=== PATIENT | female | born 1955 ===

== ENCOUNTER 2018-05-18 01:54 | Inpatient (IN) | payer MEDICAID ==
--- NOTE | 2018-05-18 02:35 | ED PDOC ---
HPI: SOB/CHF/COPD Time Seen by Provider: 05/18/18 02:08 Chief Complaint (Nursing): Shortness Of Breath Chief Complaint (Provider): Shortness Of Breath History Per: Patient History/Exam Limitations: no limitations Onset/Duration Of Symptoms: Days (x3) Associated Symptoms: denies: Fever, Chest Pain Additional Complaint(s): Yelena Wade is a 62 year old female with a past medical history of Pulmonary Embolism 6 years ago who is presenting to the ED with complaints of shortness of breath onset 3 days ago. Patient states that she had intermittent episodes of shortness of breath that worsened today. She states that with minimal exertion she feel winded. Patient denies any chest pain, fever , nausea, vomiting, or diarrhea. PMD: Shaik Lipscomb - Risk Factors PE Risk Factors: Pos: Previous PE Past Medical History Reviewed: Historical Data, Nursing Documentation, Vital Signs Vital Signs: Last Vital Signs Temp 98.2 F 05/18/18 02:15 Pulse 88 05/18/18 02:15 Resp 21 05/18/18 04:51 BP 142/93 H 05/18/18 02:15 Pulse Ox 95 05/18/18 02:37 - Medical History PMH: Pulmonary Embolism - Surgical History Surgical History: No Surg Hx - Family History Family History: States: Unknown Family Hx - Social History Current smoker - smoking cessation education provided: No Alcohol: None Drugs: Denies - Home Medications Home Medications: Ambulatory Orders Medication Instructions Recorded No Known Home Med 05/18/18 - Allergies Allergies/Adverse Reactions: Allergies Allergy/AdvReac Type Severity Reaction Status Date / Time warfarin [From Coumadin] AdvReac SWELLING Verified 05/18/18 02:15 Review of Systems ROS Statement: Except As Marked, All Systems Reviewed And Found Negative Constitutional: Negative for: Fever Cardiovascular: Negative for: Chest Pain Respiratory: Positive for: Shortness of Breath. Negative for: Cough Gastrointestinal: Negative for: Nausea, Vomiting, Diarrhea Physical Exam - Reviewed Nursing Documentation Reviewed: Yes Vital Signs Reviewed: Yes - Physical Exam Appears: Positive for: Non-toxic, No Acute Distress Head Exam: Positive for: ATRAUMATIC, NORMAL INSPECTION, NORMOCEPHALIC Skin: Positive for: Normal Color, Warm, DRY Eye Exam: Positive for: EOMI, Normal appearance, PERRL ENT: Positive for: Normal ENT Inspection Neck: Positive for: Normal, Painless ROM Cardiovascular/Chest: Positive for: Regular Rate, Rhythm. Negative for: Murmur Respiratory: Positive for: Normal Breath Sounds. Negative for: Respiratory Distress Gastrointestinal/Abdominal: Positive for: Normal Exam, Soft. Negative for: Tenderness Back: Positive for: Normal Inspection Extremity: Positive for: Normal ROM. Negative for: Deformity, Swelling Neurologic/Psych: Positive for: Alert, Oriented. Negative for: Motor/Sensory Deficits - Laboratory Results Result Diagrams: 05/18/18 02:40 05/18/18 02:40 - ECG O2 Sat by Pulse Oximetry: 95 (RA) - Critical Care Total Time (In Min): 60 Documented Critical Care: Time excludes all time spent performint seperately billable procedures Medical Decision Making Medical Decision Making: Time: 2:27 Impression: 62 year old female with dyspnea in setting of known Pulmonary Embolism Plan: --CT Chest --CMP --Troponin --Coag CT Chest: FINDINGS: Pulmonary arteries: Numerous acute bilateral pulmonary emboli. Clot is present in the mid and distal portions of the right main pulmonary artery, and in the distal portion of the left main pulmonary artery. No 'saddle embolus'. Multiple arterial branches, bilaterally, are occluded by clot. Clot load is greater on the right side. Aorta: No acute findings. No thoracic aortic aneurysm. Lungs: Unremarkable. No mass nor consolidation. Pleural space: No significant pleural effusions. No pneumothorax. Elevation of the right hemidiaphragm. Heart: No cardiomegaly. No significant pericardial effusion. Bones/joints: No acute fracture nor dislocation. Extensive degenerative thoracic spine changes. Soft tissues: Unremarkable. Lymph nodes: Unremarkable. No enlarged lymph nodes. IMPRESSION: Numerous acute bilateral pulmonary emboli. Clot is present in the mid and distal portions of the right main pulmonary artery, and in the distal portion of the left main pulmonary artery. No 'saddle embolus'. Multiple arterial branches, bilaterally, are occluded by clot. Clot load is greater on the right side. 5:01 --Labs reviewed which showed elevated Troponin levels. --IV Heparin was ordered. --Case discussed with Dr. Givens who agrees to Heparin over Lovenox for treatment of acute Pulmonary Embolism. --Patient will be admitted to the ICU under Dr. Kern. Scribe Attestation: Documented by Lucía Thoams, acting as a scribe for Baltazar Ragsdale MD. Provider Scribe Attestation: All medical record entries made by the Scribe were at my direction and personally dictated by me. I have reviewed the chart and agree that the record accurately reflects my personal performance of the history, physical exam, medical decision making, and the department course for this patient. I have also personally directed, reviewed, and agree with the discharge instructions and disposition. Disposition - Clinical Impression Clinical Impression: Pulmonary embolism - Patient ED Disposition Is Patient to be Admitted: Yes Discussed With DrFrancisca: Andrei Kern - Disposition Disposition Time: 05:05 Condition: FAIR Forms: Verified Person ([place])
[2018-05-18 02:52] LABS: BASO # 0.1 K/uL (0.0-0.2); BASO % 0.8 % (0.0-2.0); EOS # 0.1 K/uL (0.0-0.7); EOS % 0.9 % (0.0-4.0); HEMOGLOBIN 12.7 g/dL (12.0-16.0); LYMPH # 2.4 K/uL (1.0-4.3); LYMPH % 22.1 % (20.0-40.0); MEAN CELL VOLUME 93.1 fl (81.0-99.0); MEAN CORPUSCULAR HEMOGLOBIN 31.4 pg (27.0-31.0); MEAN CORPUSCULAR HGB CONC 33.8 g/dL (33.0-37.0); MEAN PLATELET VOLUME 8.7 fl (7.2-11.7); MONO # 0.8 K/uL (0.0-0.8); MONO % 7.6 % (0.0-10.0); NEUT # 7.5 K/uL (1.8-7.0); NEUT % 68.6 % (50.0-75.0); RBC 4.05 Mil/uL (3.80-5.20); RED CELL DISTRIBUTION WIDTH 13.3 % (11.5-14.5)
[2018-05-18 03:25] LABS: ALB/GLOB RATIO 1.1 (1.0-2.1); ALBUMIN 4.2 g/dL (3.5-5.0); CALCIUM 9.4 mg/dL (8.4-10.2); GFR AFRICAN-AMERICAN > 60; GFR NON-AFRICAN AMERICAN 50
[2018-05-18 03:29] LABS: PARTIAL THROMBOPLASTIN TIME 28.7 Seconds (25.6-37.1); PROTHROMBIN TIME 11.3 Seconds (9.8-13.1)
[2018-05-18] MEDS ORDERED: Iodixanol 320 MG/ML 100 ML BOTTLE IV ONE (03:29)
[2018-05-18] MEDS ORDERED: Sodium Chloride 0.9% 50 ML IV ONE (03:29)
[2018-05-18 03:40] LABS: ALT/SGPT 17 U/L (9-52); AST/SGOT 44 U/L (14-36); BLOOD UREA NITROGEN 30 mg/dl (7-17)
[2018-05-18] MEDS: Heparin 25,000units in D5W 25,000 UNITS/250 ML BAG IV SCH ×2 (05:38→20:22)
--- NOTE | 2018-05-18 06:36 | CP.PCM.HP ---
History of Present Illness - History of Present Illness History of Present Illness: CC: Shortness of breath This is a 62 year old female with a past medical history of pulmonary embolism 6 years ago (she went to [facility] at that time, reportedly had extensive workup but was un), also with history of obesity, who presents to the ED today with the complaint of progressively worsening shortness of breath beginning 3 days ago. The patient states that the shortness of breath is intermittent but brought on by exertion. She states that she has also recently been noticing left calf pain which becomes worse when she walks or stands for long periods. Yesterday, she began having a productive cough with traces of blood in otherwise clear sputum. In the ED, the patient was sent for a CT angio of the chest which revealed numerous acute bilateral emboli. Clot is present in the mid and distal portions of the right main pulmonary artery, and in the distal portion of the left main pulmonary. There is no saddle embolus detected. Troponin level is elevated at 1.5000, likely secondary to right heart strain and myocardial ischemia. The patient is to be admitted to ICU given the significant clot burden and location of the emboli. HD stable at this time. Patient denies chest pain, fevers, chills, nausea, vomiting, diarrhea, headache. All of the patient's questions were answered at the bedside. Present on Admission - Present on Admission Any Indicators Present on Admission: Yes History of DVT/PE: Yes History of Uncontrolled Diabetes: No Review of Systems - Review of Systems Review of Systems: A 12 point review of systems was conducted and found to be negative other than what was mentioned in the HPI. Past Patient History - Infectious Disease Hx of Infectious Diseases: None - Past Medical History & Family History Past Medical History?: Yes Pertinent Family History: Father had MS in his early 60's, also had Type 2 DM. - Past Social History Smoking Status: Never Smoked Occupation: Works at [employer] Alcohol: None Drugs: Denies - PULMONARY Hx Respiratory Disorders: Yes - PSYCHIATRIC Hx Substance Use: No Meds Allergies/Adverse Reactions: Allergies Allergy/AdvReac Type Severity Reaction Status Date / Time warfarin [From Coumadin] AdvReac SWELLING Verified 05/18/18 02:15 Physical Exam - Additional Findings Additional findings: Physical exam: Constitutional- cooperative, awake, alert Head- NCAT, PERRL Eye- PERRL, EOMI ENT- normal exam, MMM. Neck- normal inspection, supple, no JVD Respiratory- CTAB, no wheezes rales rhonchi Cardiovascular- RRR, +S1, +S2, +S3 heart sound. no MRG GI/Abdominal- normal bowel sounds, soft, no mass, no hsm Skin- warm, dry Extremities Exam- + Trace edema to bilateral lower extremities. (-) Nargis's sign bilaterally. normal capillary refill, normal inspection Neurological Exam- alert, awake, oriented Psych- normal mood, normal affect Results - Vital Signs Recent Vital Signs: Last Vital Signs Temp 98.6 F 05/18/18 06:22 Pulse 83 05/18/18 06:22 Resp 18 05/18/18 06:22 BP 147/77 05/18/18 06:22 Pulse Ox 100 05/18/18 05:41 - Labs Result Diagrams: 05/18/18 02:40 05/18/18 02:40 Labs: Laboratory Results - last 24 hr 05/18/18 05/18/18 05/18/18 02:40 02:40 03:10 WBC 11.0 H RBC 4.05 Hgb 12.7 Hct 37.7 MCV 93.1 MCH 31.4 H MCHC 33.8 RDW 13.3 Plt Count 183 MPV 8.7 Neut % (Auto) 68.6 Lymph % (Auto) 22.1 [place] % (Auto) 7.6 Eos % (Auto) 0.9 Baso % (Auto) 0.8 Neut # (Auto) 7.5 H Lymph # (Auto) 2.4 [place] # (Auto) 0.8 Eos # (Auto) 0.1 Baso # (Auto) 0.1 PT 11.3 INR 1.0 APTT 28.7 Sodium 141 Potassium 4.1 Chloride 105 Carbon Dioxide 23 Anion Gap 17 BUN 30 H Creatinine 1.1 Est GFR ( Amer) > 60 Est GFR (Non-Af Amer) 50 Random Glucose 93 Calcium 9.4 Total Bilirubin 1.1 AST 44 H ALT 17 Alkaline Phosphatase 100 Troponin I 1.5000 H* Total Protein 8.1 Albumin 4.2 Globulin 3.9 Albumin/Globulin Ratio 1.1 Assessment & Plan - Assessment and Plan (Free Text) Plan: This is a 62 year old female with a past medical history of pulmonary embolism 6 years ago (she went to [facility] at that time, reportedly had extensive workup but was un), also with history of obesity, who presents to the ED today with the complaint of progressively worsening shortness of breath beginning 3 days ago. The patient states that the shortness of breath is intermittent but brought on by exertion. She states that she has also recently been noticing left calf pain which becomes worse when she walks or stands for long periods. Yesterday, she began having a productive cough with traces of blood in otherwise clear sputum. In the ED, the patient was sent for a CT angio of the chest which revealed numerous acute bilateral emboli. Clot is present in the mid and distal portions of the right main pulmonary artery, and in the distal portion of the left main pulmonary. There is no saddle embolus detected. Troponin level is elevated at 1.5000, likely secondary to right heart strain and myocardial ischemia. The patient is to be admitted to ICU given the significant clot burden and location of the emboli. 1) Acute bilateral submassive pulmonary emboli, with secondary elevated troponin and myocardial ischemia - Admit to ICU - Consultation with Dr. Givens, heme/onc; recommends heparin drip which was initialized in ED. - Close hemodynamic monitoring - Echocardiogram to assess for RV strain - Bilateral lower extremity duplix to assess for DVT - IV normal saline at 75 cc/hour to support blood pressure - Cardiology consultation with Dr. 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
[2018-05-18] MEDS ORDERED: Pneumococcal 23-Valent Vaccine IM ONE (06:40)
[2018-05-18] MEDS: Sodium Chloride 0.9% 1,000 ML IV SCH ×2 (08:20→20:11)
[2018-05-18] MEDS: Pantoprazole 40 mg EC Tab PO SCH (08:24)
[2018-05-18 08:52] LABS: TROPONIN I 1.16 ng/mL (0.00-0.120)
--- NOTE | 2018-05-18 10:55 | CP.CCUPN ---
CCU Subjective - Physician Review Subjective (Free Text): ICU ADMISSION CONSULTATION: 62F admitted overnight for bilateral, submassive PTE, on Heparin drip. PMH shows previous PTE approx. 6 yrs ago and was on Warfarin x 1 year only. Asymptomatic since admission to ICU, no hemodynamic co promise, nor any chest discomfort, she does exhibit +CASTAÑEDA, denies any palpitations, diaphoresis, cough, fevers/ chills, N/V. ON Heparin drip at 1800 units/hr. Other vitals and I/O's reviewed. No fever spikes nor any low grade temps last 24H. HR 80s in sinus, BP range for systolic has been 120-140's today, SPO2 100 % on nasal cannula. ROS: No other pertinent negs or positives on 10+ system review Allergies: ?? Warfarin Home Meds: calcium, Ibuprofen, Lactobacillus, MVIs, [place]-3;s, Vit E. PMSFH: PTE event 6 yrs ago, ?? unclear allergic Gout response to warfarin. All other Nursing and physician documentation reviewed to date; no new pertinent info noted relevant to current medical problems. EXAM- HEENT: no icterus, no gaze preference NECK: No JVD, supple, carotids equal upstroke bilat/no bruits CHEST: decreased BS bases, no wheezes audible HEART: regular, distant, S1S2, no rubs or murmurs ABD: soft, no distention, no tympany, no palp tenderness, BS hypoactive EXT: no peripheral/ digital cyanosis, no calf tenderness or palpable cords, distal pulses intact and symmetrical. NEURO: no focal motor deficits SKIN: no rashes, warm and dry. LABS: WBC= 11.0 HGB= 12.7 PLTs= 183K Dt=537 K= 4.1 SW=468 HCO3= 23 BUN/Cr=35/0.9 BS= 93 Trop #1 = 1.5 Trop#2= 1.16 CXR: no gross consolidation, no cardiomegaly (my interp). CTA Chest: results noted. EKG: admission study- sinus 99/min, +PAC , PVC IMPRESSION / MAJOR PROBLEMS NOW: 1. Acute resp insuff 2 seemingly unprovoked PTE 2. r/o Hypercoagulable state; though previous w/u several yrs ago was negative, r/o LE DVT versus 2 morbid obesity PLAN: 1. If true warfarin allergy, consider DAOCs. Ongoing Heparin drip adjustment per pending PTT levels. See no indication at this point for thrombolysis. Consider obtaining formal Pulm eval . 2. Hematology eval request noted. Morbid obesity may be an inciting factor. 3. ECHO for RV RA size-fx. Doubt any myocardial ischemic event, no sustained tachycardia noted. Repeat EKG. CCU Objective - Vital Signs / Intake & Output Vital Signs (Last 4 hours): Vital Signs Temp Pulse Resp BP Pulse Ox 05/18/18 10:00 76 18 115/64 100 05/18/18 08:00 97.5 F L 93 H 25 H 125/83 100 Intake and Output (Last 8hrs): Intake & Output 05/17/18 05/18/18 05/18/18 22:59 06:59 14:59 Intake Total 10 825 Balance 10 825 Weight 321 lb Intake: IV 10 225 Oral 600 Other: # Voids Urine, Voided 1
--- NOTE | 2018-05-18 14:04 | CT ---
Date of service: 05/18/2018 PROCEDURE: CT Chest with contrast (Pulmonary Angiogram) HISTORY: chest pain r/o PE COMPARISON: None available. TECHNIQUE: Axial computed tomography images were obtained of the chest in the pulmonary arterial phase of enhancement. Coronal and sagittal reformatted images were created and reviewed. Intravenous contrast dose: Visipaque 320, 100 cc. Radiation dose: Total exam DLP = 364.92 mGy-cm. This CT exam was performed using one or more of the following dose reduction techniques: Automated exposure control, adjustment of the mA and/or kV according to patient size, and/or use of iterative reconstruction technique. FINDINGS: PULMONARY ARTERIES: Relatively prominent pulmonary embolus identified. Multifocal emboli are identified in the distal main right pulmonary artery as well as secondary and tertiary branches of the bilateral lower lobe pulmonary arteries with the more distal branches affected at the right lower greater than left lower lobes. Numerous occlusions are identified at the affected pulmonary arteries of the lower lobes, right greater than left. Minimal pulmonary embolus is difficult exclude within distal branches of the right upper lobe. No saddle embolus or other embolus identified in the main pulmonary artery with the pulmonary outflow tract appearing unremarkable. AORTA: Non aneurysmal limited aortic atherosclerosis identified at the mid to distal aortic arch with the remainder of the thoracic aorta are unremarkable. LUNGS: Unremarkable. No nodule, mass or pulmonary consolidation. PLEURAL SPACES: Unremarkable. No effusion or pneumothorax. HEART: The thoracic inlet appears unremarkable. No cardiomegaly. No significant pericardial effusion. LYMPH NODES: No lymphadenopathy. BONES, CHEST WALL: Gross multilevel thoracic spondylosis identified. No fracture or destructive lesion OTHER FINDINGS: Elevated right hemidiaphragm. IMPRESSION: Prominent pulmonary emboli identified affecting the right and left main pulmonary arteries and subsequent right greater than left lower lobe branches. No saddle embolus appreciated. No infiltrate pleural or pericardial effusion appreciable. Concordant preliminary report from [facility], 05/18/2018.
--- NOTE | 2018-05-18 14:39 | CARD ---
APPROVED REPORT Date of service: 05/18/2018 EXAM: Two-dimensional and M-mode echocardiogram with Doppler and color Doppler. Other Information Quality : GoodRhythm : NSR INDICATION Pulmonary Embolism 2D DIMENSIONS IVSd1.25 (0.7-1.1cm)LVDd4.15 (3.9-5.9cm) LVOT Diameter2.22 (1.8-2.4cm)PWd1.04 (0.7-1.1cm) IVSs1.47 (0.8-1.2cm)LVDs3.37 (2.5-4.0cm) FS (%) 18.9 %PWs1.31 (0.8-1.2cm) M-Mode DIMENSIONS Left Atrium (MM)4.56 (2.5-4.0cm)IVSd1.00 (0.7-1.1cm) Aortic Root3.32 (2.2-3.7cm)LVDd4.94 (4.0-5.6cm) Aortic Cusp Exc.2.26 (1.5-2.0cm)PWd1.26 (0.7-1.1cm) IVSs1.47 cmFS (%) 29 % LVDs3.50 (2.0-3.8cm)PWs1.32 cm Aortic Valve AoV Peak Aldqszhs825.3cm/sAoV VTI22.7cmAO Peak GR.7mmHg LVOT Peak Goqxkhxh23.1cm/sLVOT VTI16.11cmAO Mean GR.4mmHg ISIDORO (VMAX)1.23lt3DAI (VTI)1.14cm2 Mitral Valve MV E Auimeteo51.0cm/sMV DECEL SFVG075ztMM A Rpxjeric87.6cm/s MV ZIM48viO/A ratio0.5MVA (PHT)2.62cm2 TDI Lateral E' Peak V7.01cm/sMedial E' Peak V4.40cm/sE/Lateral E'6.0 E/Medial E'9.5 Tricuspid Valve TR Peak Mrtbzoff227nr/sRAP FTHTHNBU22rvKsMV Peak Gr.33mmHg [id number] LEFT VENTRICLE The left ventricle is normal size. There is mild to moderate concentric left ventricular hypertrophy. The left ventricular function is normal. The left ventricular ejection fraction is within the normal range. LVEF 65% There is normal LV segmental wall motion. The left ventricular diastolic function is normal. No left ventricle thrombus noted on this study. There is no ventricular septal defect visualized. There is no left ventricular aneurysm. There is no mass noted in the left ventricle. RIGHT VENTRICLE The right ventricle is normal size. There is normal right ventricular wall thickness. The right ventricular systolic function is normal. ATRIA The left atrium size is normal. The right atrium size is normal. The interatrial septum is intact with no evidence for an atrial septal defect. AORTIC VALVE The aortic valve is normal in structure. No aortic regurgitation is present. There is no aortic valvular stenosis. There is no aortic valvular vegetation. MITRAL VALVE The mitral valve is normal in structure. There is no evidence of mitral valve prolapse. There is no mitral valve stenosis. There is no mitral valve regurgitation noted. TRICUSPID VALVE The tricuspid valve is normal in structure. There is no tricuspid valve regurgitation noted. There is no tricuspid valve prolapse or vegetation. There is no tricuspid valve stenosis. PULMONIC VALVE The pulmonary valve is normal in structure. There is no pulmonic valvular regurgitation. There is no pulmonic valvular stenosis. GREAT VESSELS The aortic root is mildly enlarged. The IVC is normal in size and collapses >50% with inspiration. PERICARDIAL EFFUSION The pericardium appears normal. There is no pleural effusion. <Conclusion> The left ventricle is normal size. There is mild to moderate concentric left ventricular hypertrophy. The left ventricular function is normal. The left ventricular ejection fraction is within the normal range. LVEF 65% The aortic valve is normal in structure. The mitral valve is normal in structure.
--- NOTE | 2018-05-18 15:00 | CARD ---
APPROVED REPORT Date of service: 05/18/2018 EKG Measurement Heart [id number] <Conclusion> Normal sinus rhythm Normal ECG
--- NOTE | 2018-05-18 15:22 | US ---
Date of service: 05/18/2018 PROCEDURE: Bilateral lower extremity venous duplex Doppler. HISTORY: Acute pulmonary embolism, calf pain COMPARISON: None available. TECHNIQUE: Bilateral common femoral, superficial femoral, popliteal and posterior tibial veins were evaluated. Flow was assessed with color Doppler, compressibility, assessment of phasic flow and augmentation response. FINDINGS: COMMON FEMORAL VEIN: Right CFV: Unremarkable. Left CFV: Unremarkable. SUPERFICIAL FEMORAL VEIN: Right SFV: Noncompressible. Filled with echoes. No flow demonstrated. Left SFV: Unremarkable. POPLITEAL VEIN: Right Popliteal: Incomplete occlusion by thrombus. Not fully compressible. Flow demonstrated. Left Popliteal: Unremarkable. POSTERIOR TIBIAL VEIN: Right PTV: Unremarkable Left PTV: Unremarkable. OTHER FINDINGS: None. IMPRESSION: Deep venous thrombosis involving the right superficial femoral and popliteal veins.
[2018-05-18 17:15] LABS: BARBITURATES, UR NEGATIVE (NEGATIVE); BENZODIAZEPINES, UR NEGATIVE (NEGATIVE); OPIATES, UR NEGATIVE (NEGATIVE); PHENCYCLIDINE, UR NEGATIVE (NEGATIVE)
--- NOTE | 2018-05-18 17:44 | CP.PCM.CON ---
History of Present Illness - History of Present Illness History of Present Illness: 62 year old female with a history of unprovoked PE in 2011 s/p 1 year of coumadin, presenting with palpitations and shortness of breath, found to have bilateral PE's. The patient notes her work up with her first PE did not illicit a cause. She completed 1 year of coumadin but stopped due to elevation of uric acid and gout flare. Over the last few days she noticed progressive palpitations and dyspnea on exertion which prompted her to come to the hospital. She denies immobility, trauma, or hormonal medication use. A CT angio of the chest revealed b/l pulmonary emboli and a venous duplex of the lower extremities revealed right superficial femoral and popliteal DVT's. She is currently on a heparin drip and notes to feeling better. Past medical history: Unprovoked PE Past surgical history: Denies Family history: Father had prostate cancer Social history: Denies tobacco, alcohol, and illicit drug use. Allergies: Warfarin (elevation in uric acid) Review of systems: All remaining review of systems including HEENT, cardiovascular, respiratory, gastrointestinal, genitourinary, musculoskeletal, dermatologic, neurologic, and psychiatric are negative unless mentioned in the HPI. Past Patient History - Infectious Disease Hx of Infectious Diseases: None - Past Medical History & Family History Past Medical History?: Yes - Past Social History Smoking Status: Never Smoked Occupation: Works at [employer] Payment Alcohol: None Drugs: Denies - CARDIAC Hx Cardiac Disorders: No - PULMONARY Hx Respiratory Disorders: Yes - NEUROLOGICAL Hx Neurological Disorder: No - HEENT Hx HEENT Problems: No - RENAL Hx Chronic Kidney Disease: No - ENDOCRINE/METABOLIC Hx Endocrine Disorders: No - HEMATOLOGICAL/ONCOLOGICAL Hx Blood Disorders: No Hx AIDS: No Hx Human Immunodeficiency Virus (HIV): No - INTEGUMENTARY Hx Dermatological Problems: No - MUSCULOSKELETAL/RHEUMATOLOGICAL Hx Musculoskeletal Disorders: No Hx Arthritis: Yes (B/L Knees) Hx Falls: No Hx Gout: Yes - GASTROINTESTINAL Hx Gastrointestinal Disorders: No - GENITOURINARY/GYNECOLOGICAL Hx Genitourinary Disorders: No - PSYCHIATRIC Hx Substance Use: No - SURGICAL HISTORY Hx Surgeries: No Hx Dilation and Curettage: Yes (2004) Other/Comment: Colonoscopy - ANESTHESIA Hx Anesthesia: No Hx Anesthesia Reactions: No Hx Malignant Hyperthermia: No Has any member of the family had a problem w/ anesthesia?: No Meds Allergies/Adverse Reactions: Allergies Allergy/AdvReac Type Severity Reaction Status Date / Time warfarin [From Coumadin] AdvReac SWELLING Verified 05/18/18 02:15 - Medications Medications: Current Medications Acetaminophen (Tylenol 325mg Tab) 650 mg PO Q6H PRN PRN Reason: Pain, Mild (1-3) Aspirin (Aspirin Chewable) 81 mg PO DAILY [facility] Last Admin: 05/18/18 16:48 Dose: 81 mg Heparin Sodium/Dextrose (Heparin 25,000 Units/250ml In D5w) 25,000 units in 250 mls @ 18 mls/hr IV .[id number] JUSTINO PRN Reason: Protocol Last Admin: 05/18/18 05:38 Dose: 18 mls/hr Sodium Chloride (Sodium Chloride 0.9%) 1,000 mls @ 75 mls/hr IV .[id number] [facility] Stop: 05/19/18 06:06 Last Admin: 05/18/18 08:20 Dose: 75 mls/hr Pantoprazole Sodium (Protonix Ec Tab) 40 mg PO DAILY [facility] Last Admin: 05/18/18 08:24 Dose: 40 mg Physical Exam - Head Exam Head Exam: ATRAUMATIC - Eye Exam Eye Exam: Normal appearance - ENT Exam ENT Exam: Mucous Membranes Dry - Respiratory Exam Respiratory Exam: NORMAL BREATHING PATTERN - Cardiovascular Exam Cardiovascular Exam: +S1, +S2 - GI/Abdominal Exam GI & Abdominal Exam: Normal Bowel Sounds - Extremities Exam Extremities exam: Positive for: pedal edema - Neurological Exam Neurological exam: Oriented x3 - Psychiatric Exam Psychiatric exam: Normal Affect, Normal Mood - Skin Skin Exam: Warm Results - Vital Signs Recent Vital Signs: Last Vital Signs Temp 97.7 F 05/18/18 16:00 Pulse 71 05/18/18 16:00 Resp 18 05/18/18 16:00 BP 122/67 05/18/18 16:00 Pulse Ox 100 05/18/18 16:00 - Labs Result Diagrams: 05/18/18 02:40 05/18/18 02:40 Labs: Laboratory Results - last 24 hr 05/18/18 05/18/18 05/18/18 02:40 02:40 03:10 WBC 11.0 H RBC 4.05 Hgb 12.7 Hct 37.7 MCV 93.1 MCH 31.4 H MCHC 33.8 RDW 13.3 Plt Count 183 MPV 8.7 Neut % (Auto) 68.6 Lymph % (Auto) 22.1 [place] % (Auto) 7.6 Eos % (Auto) 0.9 Baso % (Auto) 0.8 Neut # (Auto) 7.5 H Lymph # (Auto) 2.4 [place] # (Auto) 0.8 Eos # (Auto) 0.1 Baso # (Auto) 0.1 PT 11.3 INR 1.0 APTT 28.7 Sodium 141 Potassium 4.1 Chloride 105 Carbon Dioxide 23 Anion Gap 17 BUN 30 H Creatinine 1.1 Est GFR ( Amer) > 60 Est GFR (Non-Af Amer) 50 Random Glucose 93 Calcium 9.4 Total Bilirubin 1.1 AST 44 H ALT 17 Alkaline Phosphatase 100 Troponin I 1.5000 H* Total Protein 8.1 Albumin 4.2 Globulin 3.9 Albumin/Globulin Ratio 1.1 Triglycerides Cholesterol LDL Cholesterol Direct HDL Cholesterol TSH 3rd Generation Urine Opiates Screen Urine Methadone Screen Ur Barbiturates Screen Ur Phencyclidine Scrn Ur Amphetamines Screen U Benzodiazepines Scrn U Oth Cocaine Metabols U Cannabinoids Screen 05/18/18 05/18/18 05/18/18 08:02 14:00 14:37 WBC RBC Hgb Hct MCV MCH MCHC RDW Plt Count MPV Neut % (Auto) Lymph % (Auto) [place] % (Auto) Eos % (Auto) Baso % (Auto) Neut # (Auto) Lymph # (Auto) [place] # (Auto) Eos # (Auto) Baso # (Auto) PT INR APTT 105.2 H* D Sodium Potassium Chloride Carbon Dioxide Anion Gap BUN Creatinine Est GFR ( Amer) Est GFR (Non-Af Amer) Random Glucose Calcium Total Bilirubin AST ALT Alkaline Phosphatase Troponin I 1.1600 H* 0.7100 H* Total Protein Albumin Globulin Albumin/Globulin Ratio Triglycerides 41 Cholesterol 160 LDL Cholesterol Direct 76 HDL Cholesterol 59 TSH 3rd Generation 2.41 Urine Opiates Screen Urine Methadone Screen Ur Barbiturates Screen Ur Phencyclidine Scrn Ur Amphetamines Screen U Benzodiazepines Scrn U Oth Cocaine Metabols U Cannabinoids Screen 05/18/18 16:45 WBC RBC Hgb Hct MCV MCH MCHC RDW Plt Count MPV Neut % (Auto) Lymph % (Auto) [place] % (Auto) Eos % (Auto) Baso % (Auto) Neut # (Auto) Lymph # (Auto) [place] # (Auto) Eos # (Auto) Baso # (Auto) PT INR APTT Sodium Potassium Chloride Carbon Dioxide Anion Gap BUN Creatinine Est GFR ( Amer) Est GFR (Non-Af Amer) Random Glucose Calcium Total Bilirubin AST ALT Alkaline Phosphatase Troponin I Total Protein Albumin Globulin Albumin/Globulin Ratio Triglycerides Cholesterol LDL Cholesterol Direct HDL Cholesterol TSH 3rd Generation Urine Opiates Screen Negative Urine Methadone Screen Negative Ur Barbiturates Screen Negative Ur Phencyclidine Scrn Negative Ur Amphetamines Screen Negative U Benzodiazepines Scrn Negative U Oth Cocaine Metabols Negative U Cannabinoids Screen Positive H Assessment & Plan (1) Pulmonary embolism Assessment and Plan: unprovoked on therapeutic anticoagulation given weight > 120 kg, the patient is not a candidate for NOAC given elevation in uric acid and gout with coumadin, the patient prefers outpatient lovenox (1mg/kg BID) will require lifelong anticoagulation given 2nd unprovoked event Status: Acute (2) DVT (deep venous thrombosis) Assessment and Plan: unprovoked, on anticoagulation given heart strain with PE's, would recommend retrievable IVC filter Status: Acute (3) Coagulopathy Assessment and Plan: secondary to heparin drip Thank you for this interesting consult. Status: Acute
--- NOTE | 2018-05-18 23:01 | CON ---
DATE: 05/18/2018 CARDIOLOGY CONSULTATION REASON FOR CONSULTATION: Borderline troponin elevation. HISTORY OF PRESENT ILLNESS: The patient is a 62-year-old female who has a history of pulmonary embolism six to seven years ago at [facility]. The patient was treated with anticoagulation therapy for one year. Denies having any pre-thrombotic state. The patient presented this time because of recurrent episodes of continuous shortness of breath on minimal exertion as well as dizziness. A CT angio of the chest was performed and was positive for pulmonary embolus. The patient is unaware of any prior cardiac history. The patient's home medication is only ibuprofen. SOCIAL HISTORY: Nonsmoker, nondrinker. She works in . MEDICATIONS: Intravenous heparin infusion in a therapeutic regimen for pulmonary embolism, Protonix 40 mg once a day, and normal saline at 75 mL an hour. REVIEW OF SYSTEMS: The patient complains of funny feeling in her left calf but has no recent orthopedic or any surgical intervention and has no prior history of cancer. PHYSICAL EXAMINATION: GENERAL: The patient is a middle-aged female who does not appear to be in any distress. VITAL SIGNS: Blood pressure 115/64, heart rate 93, temperature 97.5, respirations 18. HEENT: Normocephalic. NECK: No JVD. CHEST: Clear. HEART: S1, S2 are regular. ABDOMEN: Soft. EXTREMITIES: No edema. No calf tenderness. LABORATORY DATA: SMA-7 is within normal limit except for a BUN of 30, troponin is 1.6. Lipid profile is within normal limits. TSH level is within normal limit. PT, PTT, and INR are within normal limits. Hemoglobin and hematocrit 12.7 and 37.7, white count 11, and platelet count 183,000. EKG revealed sinus arrest at the rate of 79. Echo is done, however, it is not accessible at the [facility]. ASSESSMENT: 1. Recurrent pulmonary embolus. 2. Borderline troponin elevation, most likely related to pulmonary embolus rather than to an acute coronary syndrome. RECOMMENDATIONS: Continue intravenous heparin in a therapeutic regimen. Start aspirin at 81 mg orally daily. I have reviewed echocardiographic study. Obtain lupus markers as well as urine for drug screen. Dez Arriola MD
[2018-05-19 04:03] LABS: PARTIAL THROMBOPLASTIN TIME 86.8 Seconds (25.6-37.1); PROTHROMBIN TIME 11.4 Seconds (9.8-13.1)
[2018-05-19 05:38] LABS: HEMOGLOBIN 12.1 g/dL (12.0-16.0); MEAN CELL VOLUME 94.4 fl (81.0-99.0); MEAN CORPUSCULAR HEMOGLOBIN 31.6 pg (27.0-31.0); MEAN CORPUSCULAR HGB CONC 33.5 g/dL (33.0-37.0); RBC 3.83 Mil/uL (3.80-5.20); RED CELL DISTRIBUTION WIDTH 13.3 % (11.5-14.5); WHITE BLOOD COUNT 8.5 K/uL (4.8-10.8)
[2018-05-19 05:51] LABS: ALB/GLOB RATIO 1.1 (1.0-2.1); ALBUMIN 3.6 g/dL (3.5-5.0); ALT/SGPT 20 U/L (9-52); AST/SGOT 33 U/L (14-36); BLOOD UREA NITROGEN 19 mg/dl (7-17); GFR AFRICAN-AMERICAN > 60; GFR NON-AFRICAN AMERICAN 56
[2018-05-19 08:25] VITALS: TEMP 98.1
[2018-05-19] MEDS: Pantoprazole 40 mg EC Tab PO SCH (08:57)
[2018-05-19] MEDS ORDERED: Enoxaparin 150 mg Syringe SC SCH (11:45)
--- NOTE | 2018-05-19 12:13 | CP.PCM.DIS ---
Provider - Provider Date of Admission: 05/18/18 04:46 Attending physician: Fawad Kern DO Primary care physician: Shaik Deisi TERAN Time Spent in preparation of Discharge (in minutes): 40 Hospital Course - Lab Results Lab Results: Most Recent Lab Values WBC 8.5 K/uL (4.8-10.8) 05/19/18 05:00 RBC 3.83 Mil/uL (3.80-5.20) 05/19/18 05:00 Hgb 12.1 g/dL (12.0-16.0) 05/19/18 05:00 Hct 36.1 % (34.0-47.0) 05/19/18 05:00 MCV 94.4 fl (81.0-99.0) 05/19/18 05:00 MCH 31.6 pg (27.0-31.0) H 05/19/18 05:00 MCHC 33.5 g/dL (33.0-37.0) 05/19/18 05:00 RDW 13.3 % (11.5-14.5) 05/19/18 05:00 Plt Count 163 K/uL (130-400) 05/19/18 05:00 MPV 8.7 fl (7.2-11.7) 05/18/18 02:40 Neut % (Auto) 68.6 % (50.0-75.0) 05/18/18 02:40 Lymph % (Auto) 22.1 % (20.0-40.0) 05/18/18 02:40 [place] % (Auto) 7.6 % (0.0-10.0) 05/18/18 02:40 Eos % (Auto) 0.9 % (0.0-4.0) 05/18/18 02:40 Baso % (Auto) 0.8 % (0.0-2.0) 05/18/18 02:40 Neut # (Auto) 7.5 K/uL (1.8-7.0) H 05/18/18 02:40 Lymph # (Auto) 2.4 K/uL (1.0-4.3) 05/18/18 02:40 [place] # (Auto) 0.8 K/uL (0.0-0.8) 05/18/18 02:40 Eos # (Auto) 0.1 K/uL (0.0-0.7) 05/18/18 02:40 Baso # (Auto) 0.1 K/uL (0.0-0.2) 05/18/18 02:40 PT 11.4 Seconds (9.8-13.1) 05/19/18 03:40 INR 1.0 (0.9-1.2) 05/19/18 03:40 APTT 65.4 Seconds (25.6-37.1) H D 05/19/18 09:55 Sodium 140 mmol/l (132-148) 05/19/18 05:00 Potassium 4.0 MMOL/L (3.6-5.0) 05/19/18 05:00 Chloride 106 mmol/L (98-107) 05/19/18 05:00 Carbon Dioxide 25 mmol/L (22-30) 05/19/18 05:00 Anion Gap 13 (10-20) 05/19/18 05:00 BUN 19 mg/dl (7-17) H 05/19/18 05:00 Creatinine 1.0 mg/dl (0.7-1.2) 05/19/18 05:00 Est GFR ( Amer) > 60 05/19/18 05:00 Est GFR (Non-Af Amer) 56 05/19/18 05:00 Random Glucose 86 mg/dL (65-105) 05/19/18 05:00 Calcium 9.0 mg/dL (8.4-10.2) 05/19/18 05:00 Total Bilirubin 1.0 mg/dl (0.2-1.3) 05/19/18 05:00 AST 33 U/L (14-36) 05/19/18 05:00 ALT 20 U/L (9-52) 05/19/18 05:00 Alkaline Phosphatase 90 U/L (38-126) 05/19/18 05:00 Troponin I 0.7100 ng/mL (0.00-0.120) H* 05/18/18 14:37 Total Protein 7.0 G/DL (6.3-8.2) 05/19/18 05:00 Albumin 3.6 g/dL (3.5-5.0) 05/19/18 05:00 Globulin 3.4 gm/dL (2.2-3.9) 05/19/18 05:00 Albumin/Globulin Ratio 1.1 (1.0-2.1) 05/19/18 05:00 Triglycerides 41 mg/DL (0-149) 05/18/18 08:02 Cholesterol 160 mg/dL (0-199) 05/18/18 08:02 LDL Cholesterol Direct 76 mg/dL (0-129) 05/18/18 08:02 HDL Cholesterol 59 MG/DL (30-70) 05/18/18 08:02 TSH 3rd Generation 2.41 mIU/ML (0.46-4.68) 05/18/18 08:02 Urine Opiates Screen Negative (NEGATIVE) 05/18/18 16:45 Urine Methadone Screen Negative (NEGATIVE) 05/18/18 16:45 Ur Barbiturates Screen Negative (NEGATIVE) 05/18/18 16:45 Ur Phencyclidine Scrn Negative (NEGATIVE) 05/18/18 16:45 Ur Amphetamines Screen Negative (NEGATIVE) 05/18/18 16:45 U Benzodiazepines Scrn Negative (NEGATIVE) 05/18/18 16:45 U Oth Cocaine Metabols Negative (NEGATIVE) 05/18/18 16:45 U Cannabinoids Screen Positive (NEGATIVE) H 05/18/18 16:45 - Hospital Course Hospital Course: 62 year old female with a past medical history of pulmonary embolism 6 years ago (she went to [facility] at that time, reportedly had extensive workup but was un), also with history of obesity, who presents to the ED today with the complaint of progressively worsening shortness of breath beginning 3 days ago. The patient states that the shortness of breath is intermittent but brought on by exertion. She states that she has also recently been noticing left calf pain which becomes worse when she walks or stands for long periods. Yesterday, she began having a productive cough with traces of blood in otherwise clear sputum. In the ED, the patient was sent for a CT angio of the chest which revealed numerous acute bilateral emboli. Clot is present in the mid and distal portions of the right main pulmonary artery, and in the distal portion of the left main pulmonary. There is no saddle embolus detected. Troponin level is elevated at 1.5000, likely secondary to right heart strain and myocardial ischemia. The patient is to be admitted to ICU given the significant clot burden and location of the emboli. COURSE BY PROBLEM BELOW: 1) Acute bilateral submassive pulmonary emboli, with secondary elevated troponin - Consultation with Dr. Givens, heme/onc; recommends heparin drip which was initialized in ED. - Patient not candidate for NOAC due to weight limitations of medication, patient agrees to start LOVENOX and bridge to coumadin as outpatient. - IVC recommended and discussed with patient. She would like to first discuss with her PCP Dr. Lipscomb for further - Echocardiogram completed, mild mod LVH, normal EF - Bilateral lower extremity duplex to assess for DVT +DVT R FEMORAL VEIN - Cardiology consultation with Dr. Arriola Patient stable for discharge home with follow up PCP and heme onc with Dr. Givens for DVT/PE, lovenox and coumadin management. Scripts for LOVENOX AND COUMADIN FOR 3 DAYS GIVEN, PATIENT HAS AN APPOINTMENT WITH DR. LIPSCOMB TOMORROW. 2) Morbid Obesity - Dietary consult - Heart healthy diet 3) GI prophylaxis - Protonix 40 mg po daily 4) DVT prophylaxis - Heparin drip Discharge Exam - Head Exam Head Exam: ATRAUMATIC, NORMOCEPHALIC - Eye Exam Eye Exam: EOMI, Normal appearance - ENT Exam ENT Exam: Mucous Membranes Moist, Normal External Ear Exam - Respiratory Exam Respiratory Exam: Clear to PA & Lateral, NORMAL BREATHING PATTERN. absent: Chest Wall Tenderness, Rales, Rhonchi - Cardiovascular Exam Cardiovascular Exam: RRR, +S1, +S2 - GI/Abdominal Exam GI & Abdominal Exam: Normal Bowel Sounds, Soft. absent: Mass, Organomegaly - Extremities Exam Extremities exam: normal capillary refill, pedal pulses present - Back Exam Back exam: absent: CVA tenderness (L), CVA tenderness (R) - Neurological Exam Neurological exam: Alert, Normal Gait - Psychiatric Exam Psychiatric exam: Normal Affect, Normal Mood - Skin Skin Exam: Dry, Warm Discharge Plan - Discharge Medications Prescriptions: Warfarin [Coumadin] 5 mg PO DAILY #5 tab - Follow Up Plan Condition: FAIR Disposition: HOME/ ROUTINE Instructions: Pulmonary Embolism (DC), Pulmonary Embolism (GEN), Deep Venous Thrombosis (DC), Deep Venous Thrombosis (GEN) Referrals: Shaik Lipscomb MD [Primary Care Provider] - Toñito Givens MD [Staff Provider] -
--- NOTE | 2018-05-19 12:26 | CP.PCM.PN ---
Subjective - Date & Time of Evaluation Date of Evaluation: 05/19/18 Time of Evaluation: 12:00 - Subjective Subjective: Feeling better Objective - Vital Signs/Intake and Output Vital Signs (last 24 hours): Temp Pulse Resp BP Pulse Ox 98.1 F 76 16 140/80 100 05/19/18 08:00 05/19/18 10:00 05/19/18 10:00 05/19/18 10:00 05/19/18 10:00 Intake and Output: 05/19/18 05/19/18 06:59 18:59 Intake Total 1240 352 Output Total 40 Balance 1200 352 - Medications Medications: Current Medications Acetaminophen (Tylenol 325mg Tab) 650 mg PO Q6H PRN PRN Reason: Pain, Mild (1-3) Aspirin (Aspirin Chewable) 81 mg PO DAILY [facility] Last Admin: 05/19/18 08:57 Dose: 81 mg Enoxaparin Sodium (Lovenox) 150 mg SC Q12 JUSTINO PRN Reason: Protocol Pantoprazole Sodium (Protonix Ec Tab) 40 mg PO DAILY [facility] Last Admin: 05/19/18 08:57 Dose: 40 mg - Labs Labs: 05/19/18 05:00 05/19/18 05:00 PT 11.4 Seconds (9.8-13.1) 05/19/18 03:40 INR 1.0 (0.9-1.2) 05/19/18 03:40 APTT 65.4 Seconds (25.6-37.1) H D 05/19/18 09:55 - Head Exam Head Exam: ATRAUMATIC - Eye Exam Eye Exam: Normal appearance - ENT Exam ENT Exam: Mucous Membranes Dry - Respiratory Exam Respiratory Exam: NORMAL BREATHING PATTERN - Cardiovascular Exam Cardiovascular Exam: +S1, +S2 - GI/Abdominal Exam GI & Abdominal Exam: Normal Bowel Sounds Assessment and Plan (1) Pulmonary embolism Assessment & Plan: second event for lovenox and coumadin; goal INR 2-3 lifelong anticoagulation Status: Acute (2) DVT (deep venous thrombosis) Assessment & Plan: wants to think about IVC filter lifelong anticoagulation Status: Acute (3) Coagulopathy Assessment & Plan: anticoagulation Status: Acute
[2018-05-19 12:35] VITALS: BP 140/88; PULSE 72; RESP 12; O2SAT 99
--- NOTE | 2018-05-19 20:00 | PN ---
DATE: 05/19/2018 SUBJECTIVE: The patient is experiencing mild chest discomfort as well as left-sided discomfort. Her shortness of breath has improved. No reported ventricular arrhythmia. PHYSICAL EXAMINATION: VITAL SIGNS: Blood pressure 140/88, heart rate 72, temperature 98.1, and respirations 12. HEENT: Normocephalic. CHEST: Clear. HEART: S1 and S2 regular. EXTREMITIES: No edema. LABORATORY DATA: Today's SMA-7 is within normal limit except for BUN of 19. Urine drug screen is positive for cannabinoids. Hemoglobin and hematocrit, white count and platelet count are within normal limits. Venous Doppler of lower extremities, deep venous thrombosis involving the right superficial femoral and popliteal veins. Chest CT scan official report, prominent pulmonary emboli affecting right and left main pulmonary arteries and subsegmental right greater than left lower lobe branches. No saddle embolus. Echocardiographic study, official report is consistent with normal ventricular size with [id number] LVH with normal ejection fraction. My own review is consistent with mild elevated and mild hypokinetic right ventricle. ASSESSMENT: Right superficial femoral and popliteal vein thrombosis and bilateral pulmonary embolus. RECOMMENDATIONS: Continue current therapeutic subcutaneous Lovenox and aspirin therapy and definite anticoagulation is indicated regardless of the outcome of markers. Dez Arriola MD
== END 2018-05-19 15:00 | disposition home or self-care (01) | DRG 541 ==
LOC: H.ER 01:54 → H.ERHOLD 04:46 → H.ICU/CCU 06:09
PROVIDERS: ADMIT Internal Medicine; ATTEND Internal Medicine
PROC: 3E0234Z Introduction of Serum, Toxoid and Vaccine into Muscle, Percutaneous Approach (ICD-10-PCS; principal; 2018-05-18)
DX: I26.99 Other pulmonary embolism without acute cor pulmonale (principal); I82.431 Acute embolism and thrombosis of right popliteal vein; I82.411 Acute embolism and thrombosis of right femoral vein; D68.9 Coagulation defect, unspecified; E66.01 Morbid (severe) obesity due to excess calories; Z68.42 Body mass index [BMI] 45.0-49.9, adult; M17.0 Bilateral primary osteoarthritis of knee; Z23 Encounter for immunization; Z86.711 Personal history of pulmonary embolism